=== PATIENT | female | born 1940 | race Caucasian/White ===

== ENCOUNTER 2017-10-02 17:54 | Emergency (ER) | payer MEDICARE ==
--- NOTE | 2017-10-02 18:23 | PD ---
HPI Chief Complaint: Chest Pain Time Seen by Provider: 18:04 Travel History International Travel<30 days: No Contact w/Intl Traveler<30days: No Traveled to known affect area: No History of Present Illness HPI Patient states that while she was at the [employer] watching a concert she developed midsternal to epigastric region discomfort, rated a 5 out of 10, radiated straight to the back, associated with nausea without vomiting, and no diarrhea. Currently she is symptom-free. Patient denies any alleviating or aggravating factors. Patient denies any associated factors such as fever, cough, runny nose, rash, headache, abdominal pain, back pain. 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 PFSH Social History Tobacco Use: No Allergies-Medications Reported Meds & Prescriptions Reported Meds & Active Scripts Active Reported Allopurinol 100 Mg Tab 100 Mg PO DAILY Review of Systems Except as stated in HPI: all other systems reviewed are Neg General / Constitutional: No: Fever Eyes: No: Visual changes HENT: No: Headaches Cardiovascular: Positive: Chest Pain or Discomfort Respiratory: No: Shortness of Breath Gastrointestinal: No: Abdominal Pain Genitourinary: No: Dysuria Musculoskeletal: No: Pain Skin: No Rash Neurologic: No: Weakness Psychiatric: No: Depression Endocrine: No: Polydipsia Hematologic/Lymphatic: No: Easy Bruising Physical Exam Narrative GENERAL: SKIN: Warm and dry. HEAD: Atraumatic. Normocephalic. EYES: Pupils equal and round. No scleral icterus. No injection or drainage. ENT: No nasal bleeding or discharge. Mucous membranes pink and moist. NECK: Trachea midline. No JVD. CARDIOVASCULAR: Regular rate and rhythm. RESPIRATORY: No accessory muscle use. Clear to auscultation. Breath sounds equal bilaterally. GASTROINTESTINAL: Abdomen soft, non-tender, nondistended. MUSCULOSKELETAL: Extremities without clubbing, cyanosis, or edema. No obvious deformities. NEUROLOGICAL: Awake and alert. No obvious cranial nerve deficits. Motor grossly within normal limits. Five out of 5 muscle strength in the arms and legs. Normal speech. PSYCHIATRIC: Appropriate mood and affect; insight and judgment normal. Data Data Last Documented VS Vital Signs Date Time Temp Pulse Resp B/P (MAP) Pulse Ox O2 Delivery O2 Flow Rate FiO2 10/02/17 18:29 98.7 60 16 122/80 (94) 97 Orders Orders Electrocardiogram (10/02/17 18:04) B-Type Natriuretic Peptide (10/02/17 18:04) Ckmb (Isoenzyme) Profile (10/02/17 18:04) Complete Blood Count With Diff (10/02/17 18:) Comprehensive Metabolic Panel (10/02/17 18:04) Prothrombin Time / Inr (Pt) (10/02/17 18:04) Act Partial Throm Time (Ptt) (10/02/17 18:04) Troponin I (10/02/17 18:) Lipase (10/02/17 18:) Ecg Monitoring (10/02/17 18:04) Iv Access Insert/Monitor (10/02/17 18:04) Oximetry (10/02/17 18:04) Oxygen Administration (10/02/17 18:) Chest, Pa & Lat (10/02/17 18:04) MDM Medical Decision Making Medical Screen Exam Complete: Yes Emergency Medical Condition: Yes Medical Record Reviewed: Yes Interpretation(s) EKG shows normal sinus rhythm, 60 bpm, T-wave inversions on leads III and aVF, some motion artifact noted as well without any STEMI pattern noted. Differential Diagnosis OK versus non-STEMI versus atypical chest pain versus esophageal spasm versus GERD Narrative Course Patient was made aware that she has an abnormal EKG and due to her presentation I believe that she should be admitted to at the very least chest pain center if her troponin is negative. However the patient was a little apprehensive because her has a appointment with [facility] in morning but she is willing to consider it if it is necessary. This patient will be signed out pending lab work and disposition discussion. Diagnosis Primary Impression: Chest pain rule out [place] Peterson Bui MD Oct 02, 2017 18:23
[2017-10-02 18:29] VITALS: BP 122/80; PULSE 60; RESP 16; TEMP 98.7; O2SAT 97
[2017-10-02] MEDS ORDERED: ALLO100T PO (18:29)
--- NOTE | 2017-10-02 18:41 | RADRPT ---
EXAM DATE/TIME: 10/02/2017 18:27 [facility] COMPARISON: No previous studies available for comparison. INDICATIONS : Sudden onset of mid chest pain, MEDICAL HISTORY : None. SURGICAL HISTORY : None. ENCOUNTER: Initial ACUITY: 1 day PAIN SCORE: 4/10 LOCATION: Bilateral chest FINDINGS: There is atelectasis at both lung bases with patchy left basilar airspace disease suspected though th is may be related to atelectasis. A 3.3 cm mass is present in the right upper lobe. Mild prominence o f the interstitium. No effusions. Osseous structures are intact. CONCLUSION: Basilar atelectasis is noted. A right upper lobe mass is suspected. CT chest with contrast recommende d for further assessment. Lewis Andrew MD on October 02, 2017 at 18:38 Board Certified Radiologist. This report was verified electronically.
[2017-10-02 18:48] VITALS: O2SAT 97
[2017-10-02 18:57] LABS: AUTOMATED NEUTROPHIL # 3.7 TH/MM3 (1.8-7.7); BASOPHIL # 0.1 TH/MM3 (0-0.2); BASOPHIL % 1.5 % (0.0-2.0); EOSINOPHIL # 0.3 TH/MM3 (0-0.4); EOSINOPHIL % 3.8 % (0.0-4.0); HEMATOCRIT 43.6 % (35.0-46.0); HEMOGLOBIN 14.4 GM/DL (11.6-15.3); LYMPH % 29.8 % (9.0-44.0); MEAN CELL VOLUME 88.8 FL (80.0-100.0); MEAN CORPUSCULAR HEMOGLOBIN 29.4 PG (27.0-34.0); MEAN CORPUSCULAR HGB CONC 33.1 % (32.0-36.0); MEAN PLATELET VOLUME 8.3 FL (7.0-11.0); MONO % 7.4 % (0.0-8.0); MONOCYTE # 0.5 TH/MM3 (0-0.9); NEUT % 57.5 % (16.0-70.0); PLATELET COUNT 188 TH/MM3 (150-450); RED BLOOD COUNT 4.91 MIL/MM3 (4.00-5.30); RED CELL DISTRIBUTION WIDTH 14.2 % (11.6-17.2); WHITE BLOOD COUNT 6.6 TH/MM3 (4.0-11.0)
[2017-10-02 19:08] LABS: CHLORIDE 107 MEQ/L (98-107); SODIUM (NA) 141 MEQ/L (136-145)
[2017-10-02 19:12] LABS: ALBUMIN 3.3 GM/DL (3.4-5.0); BICARBONATE 27.8 MEQ/L (21.0-32.0); BLOOD UREA NITROGEN 16 MG/DL (7-18); CALCIUM 8.8 MG/DL (8.5-10.1); GLUCOSE,RANDOM 92 MG/DL (74-106)
[2017-10-02 19:14] LABS: PROTHROMBIN TIME - PATIENT 10.5 SEC (9.8-11.6)
[2017-10-02 19:15] LABS: ALT (GPT) 19 U/L (10-53); AST (GOT) 15 U/L (15-37); CREATININE 0.63 MG/DL (0.50-1.00); GLOMERULAR FILTRATION RATE 92 ML/MIN (>89)
[2017-10-02 19:17] LABS: TOTAL BILIRUBIN ADULT 0.5 MG/DL (0.2-1.0); TOTAL PROTEIN 6.8 GM/DL (6.4-8.2)
[2017-10-02 19:18] LABS: ALKALINE PHOSPHATASE 107 U/L (45-117)
[2017-10-02 19:20] LABS: TROPONIN I LESS THAN 0.02 NG/ML (0.02-0.05)
[2017-10-02 19:45] VITALS: BP 168/70; PULSE 88; RESP 16; O2SAT 99
[2017-10-02] MEDS ORDERED: METOCLOPRAMIDE HCL 10 MG/2 ML VIAL IV PUSH ONE (20:00)
[2017-10-02] MEDS ORDERED: LORazepam 2 MG/ML VIAL IV PUSH ONE (20:00)
[2017-10-02] MEDS ORDERED: IOHEXOL 350 MG/ML 10 ML VIAL (for RAD DIAG) IVCONTRAST ONE (20:21)
--- NOTE | 2017-10-02 20:41 | RADRPT ---
EXAM DATE/TIME: 10/02/2017 20:17 [facility] COMPARISON: No previous studies available for comparison. INDICATIONS : Right upper lobe mass discovered on chest xray. IV CONTRAST: 75 cc Omnipaque 350 (iohexol) IV RADIATION DOSE: 16.58 CTDIvol (mGy) MEDICAL HISTORY : Vertigo. SURGICAL HISTORY : Cholecystectomy. ENCOUNTER: Initial ACUITY: 1 day PAIN SCALE: 5/10 LOCATION: Right chest TECHNIQUE: Volumetric scanning of the chest was performed. Using automated exposure control and adjustment of t he mA and/or kV according to patient size, radiation dose was kept as low as reasonably achievable to obtain optimal diagnostic quality images. DICOM format image data is available electronically for review and comparison. Follow-up recommendations for detected pulmonary nodules are based at a minimum on nodule size and pa tient risk factors according to Fleischner Society Guidelines. FINDINGS: There is a 3 cm circumscribed slightly lobulated mass in the right upper lobe. There are several jann tional sub-5 mm nodules in the right lung and one in the left lower lobe which are indeterminate. Thi s dependent atelectasis at the lung bases. No pleural pericardial effusion. No mediastinal adenopathy identified. Azygos is mildly prominent. Mild coronary calcifications. Bilat eral thyroid nodules. No acute findings in the upper abdomen. Fatty liver. CONCLUSION: 1. 3 cm circumscribed slightly lobulated mass in right upper lobe. This is indeterminate for malignan cy. This should be amenable to CT-guided biopsy. 2. Multiple additional small sub-5 mm nodules in the lungs as above numbering 3 in the right lung and one in the left lower lobe. 3. 1.4 cm right lobe thyroid nodule. Subcentimeter nodules in the left lobe thyroid. Rafa Bailey MD on October 02, 2017 at 20:32 Board Certified Radiologist. This report was verified electronically.
--- NOTE | 2017-10-02 21:37 | PD ---
Physical Exam Narrative 76-year-old female signed out to me from Dr. Bui at shift change, pending CT of the patient's chest. Patient had atypical chest pain that self abated prior to presentation. Patient's workup was negative. Discharge was arranged until patient's chest x-ray was positive for a mass in the right upper lobe. CT ordered by Dr. Bui resulted as well-circumscribed lobular mass in the right middle lobe, as well as having multiple lung nodules and a thyroid nodule of 1.4 cm. This was all discussed with patient and patient's , CT report printed and CT copy on CD for patient follow-up which patient's states will be up at the [facility] in [place] with a have an ongoing relationship. Patient is asymptomatic during the evening tenure here, is ambulating throughout ED with no return of chest pain. Data Data Last Documented VS Vital Signs Date Time Temp Pulse Resp B/P (MAP) Pulse Ox O2 Delivery O2 Flow Rate FiO2 10/02/17 18:48 97 10/02/17 18:29 98.7 60 16 122/80 (94) Orders Orders Electrocardiogram (10/02/17 18:04) B-Type Natriuretic Peptide (10/02/17 18:04) Ckmb (Isoenzyme) Profile (10/02/17 18:04) Complete Blood Count With Diff (10/02/17 18:04) Comprehensive Metabolic Panel (10/02/17 18:04) Prothrombin Time / Inr (Pt) (10/02/17 18:04) Act Partial Throm Time (Ptt) (10/02/17 18:04) Troponin I (10/02/17 18:04) Lipase (10/02/17 18:04) Ecg Monitoring (10/02/17 18:04) Iv Access Insert/Monitor (10/02/17 18:04) Oximetry (10/02/17 18:04) Oxygen Administration (10/02/17 18:04) Chest, Pa & Lat (10/02/17 18:04) Ct Thorax/ Chest W Iv Contrast (10/02/17 18:55) Metoclopramide Inj (Reglan Inj) (10/02/17 20:00) Lorazepam Inj (Ativan Inj) (10/02/17 20:00) Iohexol 350 Inj (Omnipaque 350 Inj) (10/02/17 20:21) Radiology Film Requests (10/02/17 ) Labs Laboratory Tests Test 10/02/17 18:45 White Blood Count 6.6 TH/MM3 Red Blood Count 4.91 MIL/MM3 Hemoglobin 14.4 GM/DL Hematocrit 43.6 % Mean Corpuscular Volume 88.8 FL Mean Corpuscular Hemoglobin 29.4 PG Mean Corpuscular Hemoglobin Concent 33.1 % Red Cell Distribution Width 14.2 % Platelet Count 188 TH/MM3 Mean Platelet Volume 8.3 FL Neutrophils (%) (Auto) 57.5 % Lymphocytes (%) (Auto) 29.8 % Monocytes (%) (Auto) 7.4 % Eosinophils (%) (Auto) 3.8 % Basophils (%) (Auto) 1.5 % Neutrophils # (Auto) 3.7 TH/MM3 Lymphocytes # (Auto) 2.0 TH/MM3 Monocytes # (Auto) 0.5 TH/MM3 Eosinophils # (Auto) 0.3 TH/MM3 Basophils # (Auto) 0.1 TH/MM3 CBC Comment DIFF FINAL Differential Comment Prothrombin Time 10.5 SEC Prothromb Time International Ratio 1.0 RATIO Activated Partial Thromboplast Time 24.4 SEC Blood Urea Nitrogen 16 MG/DL Creatinine 0.63 MG/DL Random Glucose 92 MG/DL Total Protein 6.8 GM/DL Albumin 3.3 GM/DL Calcium Level 8.8 MG/DL Alkaline Phosphatase 107 U/L Aspartate Amino Transf (AST/SGOT) 15 U/L Alanine Aminotransferase (ALT/SGPT) 19 U/L Total Bilirubin 0.5 MG/DL Sodium Level 141 MEQ/L Potassium Level 4.1 MEQ/L Chloride Level 107 MEQ/L Carbon Dioxide Level 27.8 MEQ/L Anion Gap 6 MEQ/L Estimat Glomerular Filtration Rate 92 ML/MIN Total Creatine Kinase 50 U/L Troponin I LESS THAN 0.02 NG/ML B-Type Natriuretic Peptide 74 PG/ML Lipase 113 U/L [facility] Medical Record Reviewed: Yes Supervised Visit with JANES: Yes Differential Diagnosis Chest pain, atypical chest pain, lung mass, thyroid not Narrative Course See narrative Diagnosis Primary Impression: Chest pain rule out [place] Additional Impression: Atypical chest pain Patient Instructions: Chest Pain (ED), General Instructions Additional Instruction: You have been diagnosed with a lung mass in your right upper lung field. Recommendation is for a needle biopsy. As per discussion with you and her , recommend follow-up with your doctors in the [facility] in [place] , specifically pulmonology and interventional radiology for the above. Follow- up with your regular primary medical physician. You also have a 1.4 cm thyroid nodule as well as multiple small lung nodules that will need follow-up as well. This may or may not be related to the cause of your chest pain today. Recommend follow-up with your doctor for outpatient cardiac stress test, return promptly for worsening Disposition: 01 DISCHARGE HOME Condition: Stable Mehul Davenport MD Oct 02, 2017 21:37
[2017-10-02 21:47] VITALS: BP 157/82
--- NOTE | 2017-10-03 13:40 | EKG ---
Date Performed: 10/02/2017 Time Performed: 18:01:33 PTAGE: 76 years EKG: Sinus rhythm MODERATE VOLTAGE CRITERIA FOR LVH, CONSIDER NORMAL VARIANT INFERIOR MYOCARDIAL INFARCTION ABNORMAL E CG NO PREVIOUS TRACING DOCTOR: Wallace Trimble Interpretating Date/Time 10/03/2017 13:36:41
== END 2017-10-02 22:13 | disposition home or self-care (01) ==
LOC: PHED 17:54
DX: R07.89 Other chest pain (principal); R91.8 Other nonspecific abnormal finding of lung field; R94.31 Abnormal electrocardiogram [ECG] [EKG]
CPT/HCPCS: 71046; 71260; 80053; 82550; 83690; 83880; 84484; 85025; 85610; 85730; 93005; 96374; 96375; 99285; J2060; J2765; Q9967